=== PATIENT | male | born 1930 | race American Indian/Alaskan Native ===

== ENCOUNTER 2017-06-16 06:53 | Day surgery (SDC) | payer MEDICARE ==
[2017-06-14 13:55] VITALS: BMI 30.7
[2017-06-16 07:34] LABS: BASO # 0.03 K/mm3 (0.0-2.0); BASO % 0.7 % (0.0-3.0); EOS # 0.1 (0.0-0.7); GRAN # 2.75 (1.4-6.5); GRAN % 61.3 % (50.0-68.0); HEMOGLOBIN 10.4 g/dL (14.0-18.0); LYMPH # 1.2 (1.2-3.4); LYMPH % 27.7 % (22.0-35.0); MEAN CELL VOLUME 84.1 fl (80.0-105.0); MEAN CORPUSCULAR HEMOGLOBIN 26.3 pg (25.0-35.0); MEAN CORPUSCULAR HGB CONC 31.2 g/dl (31.0-37.0); MEAN PLATELET VOLUME 9.7 fl (7.0-11.0); MONO # 0.4 (0.1-0.6); MONO % 8.3 % (1.0-6.0); RBC 3.96 10^6/uL (3.5-6.1); RED CELL DISTRIBUTION WIDTH 14.2 % (11.5-14.5); WHITE BLOOD COUNT 4.5 10^3/ul (4.5-11.0)
[2017-06-16 07:56] LABS: INR 1.09 (0.93-1.08); PARTIAL THROMBOPLASTIN TIME 32.4 Seconds (25.1-36.5); PROTHROMBIN TIME 12.6 SECONDS (9.4-12.5)
[2017-06-16 08:41] LABS: BLOOD UREA NITROGEN 22 mg/dL (7-21); CALCIUM 9.5 mg/dL (8.4-10.5); GFR AFRICAN-AMERICAN > 60; GFR NON-AFRICAN AMERICAN > 60
[2017-06-16] MEDS ORDERED: Lidocaine 2% Inj (20ml) ONE (08:41)
[2017-06-16] MEDS ORDERED: Iohexol 350mgl/ml 50 ML ONE (08:42)
[2017-06-16] MEDS ORDERED: Phenylephrine 10 mg/ml Inj ONE (08:49)
[2017-06-16] MEDS ORDERED: Iohexol 350 MG/100 ML VIAL ONE (08:49)
[2017-06-16] MEDS ORDERED: Midazolam 2 MG/2 ML VIAL ONE ×2 (08:49→09:11)
[2017-06-16] MEDS ORDERED: Eptifibatide 20 mg/10mL Inj IVP ONE (09:20)
[2017-06-16] MEDS ORDERED: Eptifibatide 0.75 mg/ml 75 MG/100 ML BOTTLE IV ONE (09:30)
[2017-06-16] MEDS: Sodium Chloride 0.9% 1,000 ML IV SCH ×2 (10:30→12:25)
[2017-06-16 11:47] LABS: BLOOD UREA NITROGEN 19 mg/dL (7-21); CALCIUM 8.9 mg/dL (8.4-10.5); GFR AFRICAN-AMERICAN > 60; GFR NON-AFRICAN AMERICAN > 60
--- NOTE | 2017-06-16 12:47 | CARDCATH ---
PROCEDURE DATE: 06/16/2017 CARDIAC CATH AND PTCA HISTORY: The patient is an 87-year-old male, who presents with angina and dyspnea. A stress test was abnormal. The patient's past medical history includes a history of coronary artery bypass surgery. His noninvasive testing revealed a normal ejection fraction with new ischemic changes. Echocardiogram shows aortic sclerosis without stenosis. The ejection fraction is over 50%. Because of this, cardiac catheterization was recommended. PROCEDURE: Left heart catheterization with coronary arteriography, supraaortic valvular injection, PATEL angiogram and PTCA and stent of a protected left main artery as well as the proximal circumflex artery. There were no complications. I performed moderate sedation, which included the presence of an independent trained observer that assisted in monitoring the patient's level of consciousness and physiologic status. After administration of fentanyl and Versed, my intra service time was 45 minutes. The findings on catheterization revealed a 99% ostial left main stenoses. The proximal circumflex revealed 80% stenoses. The LAD was occluded at its ostium. The right coronary artery was selectively cannulized and found to have a subtotally occluded AV groove branch of the RCA. There was a large parallel vessel of the RCA that fed the mid and distal PDA. Supraaortic valvular injection revealed no aortic insufficiency. The PATEL to the LAD was selectively cannulized and found to provide good antegrade flow to the mid and distal LAD. The patient was given two doses of intravenous Integrilin bolus with a drip as well as IV Angiomax. On the fluoroscopic guide, the guiding catheter was placed in the ostium in the left main artery. An 0.014 ATW wire was used to cross the 2 critical lesions. A 2.5 balloon was used to dilate the ostial left main as well as the proximal circumflex artery. This was followed by balloon angioplasty with a 3 balloon. After balloon deflation and removal, a 2.75 x 15 mm drug-eluting stent was placed and deployed in the proximal circumflex artery at 14 atmospheres of pressure. This was followed by a 4 x 8 mm drug-eluting stent that was placed and deployed in the ostium of the left main artery, which was at 14 atmospheres of pressure. Repeat coronary arteriography after balloon deflation removal revealed an excellent result with no residual stenosis and HODAN III flow across the left main artery as well as the proximal circumflex artery. Angio-Seal was used to close the femoral artery site. The patient tolerated the procedure well. In summary, the procedure was successful for PTCA and stent of a protected 99% ostial left main stenoses as well as a 80% proximal circumflex artery stenoses. Drug-eluting stents were utilized. Coronary arteriography revealed an occluded proximal RCA with a parallel vessel in the RCA that fed the mid and distal PDA. There was a 99% ostial left main stenoses, 80% proximal circumflex stenosis as well as an occluded LAD. The PATEL to the LAD was patent and provided good antegrade flow. There was no aortic insufficiency. Given these findings, the patient will need to remain on aspirin indefinitely and Plavix for a year and undergo a strict cardiac risk reduction program. Jamil Nino MD
[2017-06-16] MEDS: Insulin Reg-MEDIUM-Coverage SC SCH ×2 (17:48→21:37)
--- NOTE | 2017-06-16 22:25 | CARD ---
APPROVED REPORT EKG Measurement Heart [id number] <Conclusion> Normal sinus rhythm Normal ECG
[2017-06-17 00:10] VITALS: RESP 20; TEMP 97.8
[2017-06-17 06:15] LABS: BASO # 0.03 K/mm3 (0.0-2.0); BASO % 0.6 % (0.0-3.0); EOS # 0.1 (0.0-0.7); EOS % 2.4 % (1.5-5.0); GRAN # 2.93 (1.4-6.5); GRAN % 62.9 % (50.0-68.0); HEMOGLOBIN 10.2 g/dL (14.0-18.0); LYMPH # 1.2 (1.2-3.4); LYMPH % 25.5 % (22.0-35.0); MEAN CELL VOLUME 83.9 fl (80.0-105.0); MEAN CORPUSCULAR HEMOGLOBIN 26.6 pg (25.0-35.0); MEAN CORPUSCULAR HGB CONC 31.7 g/dl (31.0-37.0); MEAN PLATELET VOLUME 9.9 fl (7.0-11.0); MONO # 0.4 (0.1-0.6); MONO % 8.6 % (1.0-6.0); RBC 3.84 10^6/uL (3.5-6.1); RED CELL DISTRIBUTION WIDTH 14.5 % (11.5-14.5); WHITE BLOOD COUNT 4.7 10^3/ul (4.5-11.0)
[2017-06-17 06:25] VITALS: BP 140/73; PULSE 68; O2SAT 97
[2017-06-17 06:38] LABS: ALB/GLOB RATIO 1.3 (1.1-1.8); ALBUMIN 3.8 g/dL (3.0-4.8); ALT/SGPT 30 U/L (7-56); AST/SGOT 27 U/L (17-59); BLOOD UREA NITROGEN 17 mg/dL (7-21); CALCIUM 8.9 mg/dL (8.4-10.5); GFR AFRICAN-AMERICAN > 60; GFR NON-AFRICAN AMERICAN > 60
[2017-06-17] MEDS: Insulin Reg-MEDIUM-Coverage SC SCH (08:27)
--- NOTE | 2017-06-17 08:38 | HP ---
HISTORY OF PRESENT ILLNESS: I was called by Dr. Jamil Nino to see Tristan. He is status post cardiac cath with stent placement. He is an 87-year-old male who is having shortness of breath when walking, came and suddenly had a stress test and echo done on 06/03/2017 and then he was planned for cardiac cath with a stent until this morning. PAST MEDICAL HISTORY: Diabetes, AL, CAD, high cholesterol, hypertension, arthritis, GERD, history of cancer in 1992, he had a CABG in 1996; dry eyes, profuse sweating, especially at night. He has got right knee swelling. FAMILY HISTORY: Family has a history of diabetes. Inguinal hernia, also neck pain. He has prostate cancer. He had CABG, prostate surgery 4 to 5 years ago, colonoscopy. SOCIAL HISTORY: He quit smoking. He quit alcohol. No substance abuse. REVIEW OF SYSTEMS: He has had hypertension, CAD and CABG, right knee pains. He wears glasses. He is alert and oriented x3. He is alert and cooperative. He has no acute vision changes or hearing changes. No sore throat. He has been having shortness of breath, occasional chest discomfort from time to time. Feels short of breath, but no cough. No abdominal pain. No nausea or vomiting. Occasional leg swelling, but none now. Skin for the most part is intact. PHYSICAL EXAMINATION: VITAL SIGNS: 97.4 temperature, 75 pulse, 20 respiratory rate, 99% O2 sat on oxygen, 147/78 blood pressure. HEENT: Head is atraumatic, normocephalic. Extraocular muscles are intact. Throat is moist. NECK: Supple. HEART: Regular rate. LUNGS: Decreased breath sounds, but clear to auscultation. ABDOMEN: Soft, obese, nontender. Positive bowel sounds. EXTREMITIES: Have trace edema if any. SKIN: For the most part is intact. LYMPHATICS: Thyroid midline. No palpable appreciable lymphadenopathy. LABORATORY DATA: He had blood tests. He has a 141 sodium, potassium of 4.1. BUN is 19, creatinine 0.8; it was as high as 22/0.9. GFR is greater than 60. Sugar is 133 and 169, I will put him on insulin coverage. Calcium is 8.9. INR is 1.09, hemoglobin 4.5, and platelets of 189. ASSESSMENT AND PLAN: We will watch him overnight to lay flat for 6 hours. We will check his labs tomorrow. He will be on aspirin, atorvastatin, Plavix, insulin coverage and IV fluids. This is Dr. Roberts doing a history and physical on Tristan who has coronary artery disease with stent placement, diabetes and hypertension. Mian Roberts DO MTDD
--- NOTE | 2017-06-17 10:41 | PN ---
DATE: 06/17/2017 CARDIOLOGY FOLLOWUP SUBJECTIVE: The patient is asymptomatic, ambulating in the room. PHYSICAL EXAMINATION: VITAL SIGNS: Stable. Blood pressure is 140/73 with the heart rates in the 60s. NECK: Negative JVD. LUNGS: Without rales. HEART: Reveals S1, S2. EXTREMITIES: Without edema. The right groin site is stable. LABORATORY DATA: Laboratories were reviewed and unchanged. Glucose is 159. IMPRESSION: 1. Stable post percutaneous transluminal coronary angioplasty and stent of a 99% left main stenoses. 2. Status post percutaneous transluminal coronary angioplasty and stent of the 80% circumflex artery. 3. Multivessel coronary artery disease. 4. History of coronary artery bypass surgery. 5. Diabetes mellitus. 6. Hypercholesterolemia. PLAN: Given these findings, the patient is doing well post procedure. The patient can be discharged today. Followup and instructions were given to the patient in detail. Jamil Nino MD
--- NOTE | 2017-06-17 11:34 | DS ---
HISTORY OF PRESENT ILLNESS: I saw him resting comfortably in bed this morning. He is in good spirits. He is feeling well. No chest pain. No shortness of breath. No abdominal pain. He is eating and he has walked a little bit. PHYSICAL EXAMINATION: VITAL SIGNS: He has a 97.8 temp, 68 pulse, 140/73 blood pressure, 20 respiratory rate, 97% O2 sat on room air. HEENT: His head is atraumatic, normocephalic. HEART: Regular rate. LUNGS: Clear to auscultation. ABDOMEN: Soft, nontender. Positive bowel sounds. Obese mildly. EXTREMITIES: No edema. LABORATORY DATA: He has 4.7 white count, 10.2 hemoglobin, 32.2 hematocrit with 166 platelets. He has a 141 sodium, potassium 3.7, BUN 17, creatinine 0.8, GFR is greater than 60, sugar is 149, calcium is 8.9, total bili is 0.4, AST is 27, ALT is 30, alk phos 48, total protein 6.6, albumin is 3.8. ASSESSMENT AND PLAN: I discussed with Dr. Nino. He will be discharged today. He can follow up with him on the outpatient. We will continue with his Ecotrin, Lipitor, Plavix as per Dr. Nino. Tristan Ovalles with coronary artery disease with a coronary stent placed. Mian Roberts DO
--- NOTE | 2017-06-17 11:49 | CARD ---
APPROVED REPORT EKG Measurement Heart [id number] <Conclusion> Sinus bradycardia Nonspecific T wave abnormality Abnormal ECG
== END 2017-06-17 12:31 | disposition home or self-care (01) ==
LOC: CATH 06:53 → 2RNO 10:15 → CATH 06-17 12:31
PROVIDERS: ATTEND Internal Medicine Cardiovascular Disease
DX: I25.10 Atherosclerotic heart disease of native coronary artery without angina pectoris (principal); K21.9 Gastro-esophageal reflux disease without esophagitis; E78.00 Pure hypercholesterolemia, unspecified; I10 Essential (primary) hypertension; E11.9 Type 2 diabetes mellitus without complications; Z95.1 Presence of aortocoronary bypass graft; Z87.891 Personal history of nicotine dependence
CPT/HCPCS: 36415; 80048; 82948; 85025; 85610; 85730; 86850; 86900; 93005; 93459; 93567; 99152; 99153; C1725 ×2; C1760; C1769 ×2; C1874 ×2; C1887; C2629; C9600; J0583; J1327 ×2; J1644; J2250; J3010; J7040 ×2; Q9967 ×3

== ENCOUNTER 2018-03-14 02:48 | Emergency (ER) | payer MEDICARE ==
[2018-03-14 02:48] VITALS: BMI 30.7
[2018-03-14] MEDS ORDERED: Oxycodone/Acetaminophen 5/325 mg Tab PO STA (03:18)
--- NOTE | 2018-03-14 03:18 | ED PDOC ---
Arrival/HPI - General Historian: Patient - History of Present Illness Narrative History of Present Illness (Text): Patient is a 87 yr old male with PMH HTN, CAD, CABG, DM, GERD who presents to [facility] ED with a painful rash extending from his back around to his abdomen. He recently saw his PMD for this and was given Valtrex and neurontin. He states that the pain has continued and the rash has progressed despite the medications. He endorses pain to touch and movement but otherwise denies RIOS, CP, SOB abdominal pain, f/c, n/v, stool changes and extremity pain/weakness. 03/14/18 04:32 Time/Duration: Prior to Arrival, < week (3-4 days) Symptom Onset: Sudden Symptom Course: Worsening Quality: Burning Severity Level: 6 <Ara Martínez - Last Filed: 03/14/18 04:34> <Navi Zimmerman - Last Filed: 03/14/18 05:00> - General Chief Complaint: Abnormal Skin Integrity Time Seen by Provider: 03/14/18 02:59 Past Medical History - Provider Review Nursing Documentation Reviewed: Yes - Tetanus Immunization Tetanus Immunization: Unknown - Cardiac Hx Hypertension: Yes Hx Pacemaker: No - Neurological Hx Paralysis: No - Endocrine/Metabolic Hx Diabetes Mellitus Type 2: Yes - Hematological/Oncological Hx Blood Transfusions: No Hx Blood Transfusion Reaction: No - Musculoskeletal/Rheumatological Hx Musculoskeletal Disorders: No (HAS NECK PAIN) - Psychiatric Hx Emotional Abuse: No Hx Physical Abuse: No Hx Substance Use: No - Surgical History Hx Cardiac Catheterization: Yes (x 1 stent) - Anesthesia Hx Anesthesia: Yes Hx Anesthesia Reactions: No Hx Malignant Hyperthermia: No - Suicidal Assessment Feels Threatened In Home Enviroment: No <Ara Martínez - Last Filed: 03/14/18 04:34> Family/Social History - Physician Review Nursing Documentation Reviewed: Yes Family/Social History: Unknown Family HX Smoking Status: Never Smoked Hx Alcohol Use: Yes (QUIT 1996) Hx Substance Use: No <Ara Martínez - Last Filed: 03/14/18 04:34> Allergies/Home Meds <Ara Martínez - Last Filed: 03/14/18 04:34> <Navi Zimmerman - Last Filed: 03/14/18 05:00> Allergies/Adverse Reactions: Allergies No Known Allergies Allergy (Verified 06/14/17 13:55) Home Medications: Home Meds Medication Instructions Recorded Confirmed Hydrochlorothiazide [HCTZ] 25 mg PO QAM 11/12/13 06/16/17 Losartan [Cozaar] 25 mg PO QAM 06/03/17 06/16/17 Megestrol Acetate [Megace] 40 mg PO QID 06/03/17 06/16/17 Metoprolol Tartrate [Lopressor] 50 mg PO BID 06/03/17 06/16/17 Polyethylene Glycol/Polyvinyl 15 ml OP PRN PRN 06/03/17 06/16/17 [Artificial Tears] Simvastatin [Zocor] 40 mg PO DAILY 06/03/17 06/16/17 Tamsulosin HCl [Flomax] 0.4 mg PO DAILY PRN 06/03/17 06/16/17 metFORMIN [glucOPHAGE] 500 mg PO BID 06/03/17 06/14/17 Cholecalciferol (Vitamin D3) 1,000 unit PO DAILY 06/14/17 [Vitamin D3] Plavix 75 mg PO DAILY 06/17/17 06/17/17 Review of Systems - Physician Review All systems were reviewed & negative as marked: Yes - Review of Systems Constitutional: Normal. absent: Fevers Respiratory: absent: SOB, Cough Cardiovascular: absent: Chest Pain Gastrointestinal: Abdominal Pain (skin over the T10 dermatome). absent: Constipation, Diarrhea, Nausea, Vomiting Musculoskeletal: Back Pain (skin over the T 10 dermatome). absent: Arthralgias Skin: Rash (raised painful tender vesicular rash spread over the T10 dermatome), Skin Lesions (vesicular lesions) Neurological: absent: Headache Endocrine: absent: Diaphoresis <Ara Martínez - Last Filed: 03/14/18 04:34> Physical Exam Vital Signs Reviewed: Yes Vital Signs Temp Pulse Resp BP Pulse Ox 03/14/18 02:48 98.7 F 70 18 157/72 H 97 Temperature: Afebrile Blood Pressure: Hypertensive Pulse: Regular Respiratory Rate: Normal Appearance: Positive for: Well-Appearing, Non-Toxic, Comfortable Pain Distress: None Mental Status: Positive for: Alert and Oriented X 3 - Systems Exam Head: Present: Atraumatic, Normocephalic Extroacular Muscles: Present: EOMI Mouth: Present: Moist Mucous Membranes Neck: Present: Normal Range of Motion Respiratory/Chest: Present: Clear to Auscultation, Good Air Exchange. No: Respiratory Distress, Accessory Muscle Use Cardiovascular: Present: Regular Rate and Rhythm, Normal S1, S2. No: Murmurs Abdomen: Present: Normal Bowel Sounds, Other (vesicular lesions over the skin of the T10 dermatome). No: Tenderness, Distention, Peritoneal Signs Back: Present: Other (vesicular lesions tender to touch over T10 dermatome) Upper Extremity: Present: Normal Inspection, NORMAL PULSES. No: Cyanosis, Edema Lower Extremity: Present: Normal Inspection, NORMAL PULSES. No: Edema, CALF TENDERNESS Neurological: Present: GCS=15, CN II-XII Intact, Speech Normal Skin: Present: Warm, Dry, Rashes (vesiclar raised lesions over the T10 dermatome), Erythematous Psychiatric: Present: Alert, Oriented x 3, Normal Insight, Normal Concentration <Ara Martínez - Last Filed: 03/14/18 04:34> Vital Signs Temp Pulse Resp BP Pulse Ox 03/14/18 02:48 98.7 F 70 18 157/72 H 97 <Navi Zimmerman - Last Filed: 03/14/18 05:00> Medical Decision Making ED Course and Treatment: Impression: 87 yr old male presenting with Shingles Plan: Percocet Capsaicin cream continue home medications discharge with instructions to f/u with primary 03/14/18 03:21 <Ara Martínez - Last Filed: 03/14/18 04:34> ED Course and Treatment: Impression: Pt seen and evaluated with resident. Aware and agree with HPI, clinical findings, plan, and management. Pt, whose past medical history includes hypertension, CAD, CABG, diabetes, and GERD, presented for a painful rash to his right lower back extending to his right abdomen. Plan: -- Zostrix -- Percocet -- Reassess and disposition - Medication Orders Current Medication Orders: Capsaicin (Zostrix-Hp) 60 gm TOP ONCE ONE Stop: 03/14/18 03:22 Discontinued Medications Oxycodone/Acetaminophen (Percocet 5/325 Mg Tab) 1 tab PO STAT STA Stop: 03/14/18 03:19 <Navi Zimmerman - Last Filed: 03/14/18 05:00> - PA / FEATHER CURLING MACHINE OPERATOR / Resident Statement /DO has reviewed & agrees with the documentation as recorded. MD/ has examined the patient and agrees with the treatment plan. <ErasmoNavi - Last Filed: 03/14/18 05:00> Disposition/Present on Arrival - Present on Arrival Any Indicators Present on Arrival: No History of DVT/PE: No History of Uncontrolled Diabetes: No Urinary Catheter: No History of Decub. Ulcer: No History Surgical Site Infection Following: None - Disposition Have Diagnosis and Disposition been Completed?: Yes Disposition Time: 03:28 Patient Plan: Discharge <Flory Martínezah - Last Filed: 03/14/18 04:34> <ErasmoNavi - Last Filed: 03/14/18 05:00> - Disposition Diagnosis: Shingles rash Disposition: HOME/ ROUTINE Condition: GOOD Discharge Instructions (ExitCare): Shingles (DC), Shingles (ED) Additional Instructions: Please follow up with your primary care doctor within 3-5 days of Discharge you have been given 2 medications upon discharge Capsaicin cream to be applied to the painful area three times daily for pain Percocet take 1 tab every 6 hours by mouth for pain If your symptoms worsen/ persist or if new concerning symptoms develop please return to the nearest ED for evaluation Prescriptions: oxyCODONE/Acetaminophen [Percocet 5/325 mg Tab] 1 ea PO Q6 PRN #12 tab PRN Reason: Pain, Moderate (4-7) Capsaicin [Zostrix Hp] 56.6 gm TP TID PRN #1 tube PRN Reason: Pain, Moderate (4-7) Referrals: Page Queen MD [Primary Care Provider] - Follow up with primary Forms: [employer] - [employer] (Mongolian)
[2018-03-14] MEDS ORDERED: Capsaicin 0.075% Cream(60 gm) TOP ONE (03:21)
[2018-03-14 04:06] VITALS: BP 140/65; PULSE 62; RESP 20; TEMP 97.6; O2SAT 98
== END 2018-03-14 04:06 | disposition home or self-care (01) ==
LOC: ED 02:48
DX: B02.9 Zoster without complications (principal); E11.9 Type 2 diabetes mellitus without complications; I10 Essential (primary) hypertension; I25.10 Atherosclerotic heart disease of native coronary artery without angina pectoris

== ENCOUNTER 2018-03-17 08:38 | Outpatient (CLI) | payer MEDICARE | END 2018-03-17 08:39 | disposition home or self-care (01) | LOC: RAD 08:38 ==

== ENCOUNTER 2018-03-19 06:51 | Emergency (ER) | payer MEDICARE ==
[2018-03-19 06:51] VITALS: BMI 30.7
[2018-03-19 07:02] VITALS: RESP 18
--- NOTE | 2018-03-19 07:35 | ED PDOC ---
Arrival/HPI - General Chief Complaint: Abdominal Pain Time Seen by Provider: 03/19/18 07:16 Historian: Patient - History of Present Illness Narrative History of Present Illness (Text): 03/19/18 07:30 A 87 year old male, whose past medical history includes diabetes, CABBG, CAD, stent, hyperlipidemia, and hypertension, presents to the emergency department complaining of right lower quadrant pain radiating to the right flank for the past few days. Patient states pain has occurred since the shingles and has progressed over that past days. Patient notes lying on his right side exacerbates pain and rates the pain 8/10. Patient states he is experiencing an increasing urinary frequency. Patient reports he was in the ER a few days ago for shingles also on the right side that is almost resolved and was discharged with percocets and capsaicin cream which patient states has helped. Patient reports he saw his primary care doctor yesterday and states his doctor believes he may have kidney stones. Patient denies any fever, chills, shortness of breath, urinary symptoms, back pain, headache, dizziness, or any other complaints. PMD: Dr. Queen Time/Duration: < week (past few days) Symptom Onset: Gradual Symptom Course: Unchanged Activities at Onset: Light Context: Home Past Medical History - Provider Review Nursing Documentation Reviewed: Yes - Infectious Disease Hx of Infectious Diseases: None - Tetanus Immunization Tetanus Immunization: Unknown - Cardiac Hx Hypertension: Yes Hx Pacemaker: No - Neurological Hx Paralysis: No - Endocrine/Metabolic Hx Diabetes Mellitus Type 2: Yes - Hematological/Oncological Hx Blood Transfusions: No Hx Blood Transfusion Reaction: No - Musculoskeletal/Rheumatological Hx Musculoskeletal Disorders: No (HAS NECK PAIN) - Psychiatric Hx Emotional Abuse: No Hx Physical Abuse: No Hx Substance Use: No - Surgical History Hx Cardiac Catheterization: Yes (x 1 stent) - Anesthesia Hx Anesthesia: Yes - Suicidal Assessment Feels Threatened In Home Enviroment: No Family/Social History - Physician Review Nursing Documentation Reviewed: Yes Family/Social History: No Known Family HX Smoking Status: Never Smoked Hx Alcohol Use: Yes (QUIT 1996) Hx Substance Use: No Allergies/Home Meds Allergies/Adverse Reactions: Allergies No Known Allergies Allergy (Verified 06/14/17 13:55) Home Medications: Home Meds Medication Instructions Recorded Confirmed Hydrochlorothiazide [HCTZ] 25 mg PO QAM 11/12/13 03/19/18 Losartan [Cozaar] 25 mg PO QAM 06/03/17 03/19/18 Metoprolol Tartrate [Lopressor] 50 mg PO BID 06/03/17 03/19/18 Polyethylene Glycol/Polyvinyl 15 ml OP PRN PRN 06/03/17 03/19/18 [Artificial Tears] Tamsulosin HCl [Flomax] 0.4 mg PO DAILY 06/03/17 03/19/18 metFORMIN [glucOPHAGE] 2 tab PO BID 06/03/17 03/19/18 Cholecalciferol (Vitamin D3) 1,000 unit PO DAILY 06/14/17 03/19/18 [Vitamin D3] Atorvastatin Calcium [Lipitor] 80 mg PO DAILY 03/19/18 03/19/18 Review of Systems - Physician Review All systems were reviewed & negative as marked: Yes - Review of Systems Constitutional: absent: Fevers, Other (chills) Respiratory: absent: SOB Genitourinary Male: Frequency (increased urinary frequency), Other (right groin pain). absent: Dysuria Neurological: absent: Headache, Dizziness Physical Exam - Physical Exam Narrative Physical Exam (Text): 03/19/18 07:30 Gen: VS reviewed, alert, well developed, well nourished, nontoxic, mild distress. ENT: normal pharynx. Eye: EOMI, PERRL. Neck: no JVD, supple, no adenopathy. CV: regular rate, regular rhythm, no rubs, no murmur, no gallops, S1, S2, pulses equal and strong. Pulm: no distress, clear to auscultation, no wheeze, no rhonchi, breath sounds equal, no rales. Abd: mild right lower quadrant tenderness, no guarding, no rebound, no rigidity, normal bowel sounds. Ext: no edema. Skin: good color, no rash, no cyanosis. well healed scant rash on his periumbilical area extending across the right side dermatome to his back. Psych: responds appropriately to questions, normal affect. Neuro: oriented x 3, CN2-12 intact grossly, motor intact, sensation intact. Vital Signs Reviewed: Yes Vital Signs Temp Pulse Resp BP Pulse Ox 03/19/18 07:02 97.2 F L 78 18 133/50 L 96 Temperature: Hypothermic Blood Pressure: Hypotensive Pulse: Regular Respiratory Rate: Normal Mental Status: Positive for: Alert and Oriented X 3 Medical Decision Making ED Course and Treatment: 03/19/18 07:30 Impression: 87 year old male presenting to the emergency room complaining of right groin pain. Plan: -- CMP -- CBC -- Xray of abdomen -- Urinalysis -- Reassess and disposition Prior Visits: Notes and results from previous visits were reviewed. Progress Notes: 03/19/18 10:00 patient seen for right sided abominal pain, decreased bowel movements, benign abdominal exam, onset after taking percocet for recently diagnosed shingles. Ct of the a/p reviewed by myself and was unremarkable. xr of the a/p was done to eval for suspected clinical constipation. patient was in no significant pain during ED course. patient was educated on clinical diagnose and instructed to follow up with pcp. - RAD Interpretation Narrative RAD Interpretations (Text): 03/19/18 09:57 xr my read: no bowel obstruction, oral contrast visualized in the intestines which has the appearance of constipated stool. no impaction Senior Industrial Engineer: ED Physician - Scribe Statement The provider has reviewed the documentation as recorded by the Scribe Lolis Diehl All medical record entries made by the Scribe were at my direction and personally dictated by me. I have reviewed the chart and agree that the record accurately reflects my personal performance of the history, physical exam, medical decision making, and the department course for this patient. I have also personally directed, reviewed, and agree with the discharge instructions and disposition. Disposition/Present on Arrival - Present on Arrival Any Indicators Present on Arrival: No History of DVT/PE: No History of Uncontrolled Diabetes: No Urinary Catheter: No History of Decub. Ulcer: No History Surgical Site Infection Following: None - Disposition Have Diagnosis and Disposition been Completed?: Yes Diagnosis: Abdominal pain, Constipation, Postherpetic neuralgia Disposition: HOME/ ROUTINE Disposition Time: 09:58 Patient Plan: Discharge Patient Problems: Current Active Problems Problem Status Onset Abdominal pain Acute Constipation Acute Postherpetic neuralgia Acute Condition: STABLE Discharge Instructions (ExitCare): Shingles, Constipation in Adults Additional Instructions: return for any new or worsening symptoms. follow up with your primary care doctor. Prescriptions: Sennosides/Docusate Sodium [Colace 2-in-1 Tablet] 2 each PO BID 7 Days #14 tablet Forms: [employer] (Iranian)
[2018-03-19 08:57] LABS: BASO # 0.03 K/mm3 (0.0-2.0); BASO % 0.6 % (0.0-3.0); EOS # 0.1 (0.0-0.7); EOS % 2.1 % (1.5-5.0); GRAN # 2.97 (1.4-6.5); GRAN % 61.2 % (50.0-68.0); HEMOGLOBIN 11.9 g/dL (14.0-18.0); LYMPH # 1.3 (1.2-3.4); LYMPH % 27.2 % (22.0-35.0); MEAN CELL VOLUME 86.4 fl (80.0-105.0); MEAN CORPUSCULAR HEMOGLOBIN 27.9 pg (25.0-35.0); MEAN CORPUSCULAR HGB CONC 32.3 g/dl (31.0-37.0); MEAN PLATELET VOLUME 10.2 fl (7.0-11.0); MONO # 0.4 (0.1-0.6); MONO % 8.9 % (1.0-6.0); RBC 4.26 10^6/uL (3.5-6.1); RED CELL DISTRIBUTION WIDTH 14.5 % (11.5-14.5); WHITE BLOOD COUNT 4.9 10^3/uL (4.5-11.0)
[2018-03-19 09:11] VITALS: BP 159/76; PULSE 66; O2SAT 99
[2018-03-19 09:15] LABS: PH,URINE 6.5 (4.7-8.0); URINE BILIRUBIN NEGATIVE (NEGATIVE); URINE BLOOD NEGATIVE (NEGATIVE); URINE GLUCOSE (UA) NEGATIVE (NEGATIVE); URINE LEUKOCYTE ESTERASE NEGATIVE Leu/uL (NEGATIVE); URINE PROTEIN 30 mg/dL (<30 mg/dL); URINE UROBILINOGEN 0.2 E.U./dL (<1 E.U./dL)
[2018-03-19 09:17] LABS: URINE APPEARANCE CLEAR (CLEAR); URINE COLOR YELLOW (YELLOW)
[2018-03-19 09:25] LABS: URINE EPITHELIAL CELLS 0 - 2 /hpf (0-5); URINE RBC 0 - 2 /hpf (0-2); URINE WBC 0 - 2 /hpf (0-6)
[2018-03-19 09:49] LABS: ALB/GLOB RATIO 1.3 (1.1-1.8); ALBUMIN 4.5 g/dL (3.0-4.8); ALT/SGPT 22 U/L (7-56); AST/SGOT 31 U/L (17-59); BLOOD UREA NITROGEN 14 mg/dL (7-21); GFR NON-AFRICAN AMERICAN > 60
[2018-03-19 10:26] VITALS: TEMP 98.2
--- NOTE | 2018-03-19 16:41 | RAD ---
Date of service: 03/19/2018 HISTORY: pain, constipation COMPARISON: None available. FINDINGS: BOWEL: Normal. No obstruction. No free air. Oral contrast seen within colon from recent CT examination. No hepatic or splenic enlargement. BONES: Normal. OTHER FINDINGS: None. IMPRESSION: No evidence of bowel obstruction.
== END 2018-03-19 10:24 | disposition home or self-care (01) ==
LOC: ED 06:51
DX: B02.29 Other postherpetic nervous system involvement (principal); R10.9 Unspecified abdominal pain; K59.00 Constipation, unspecified; I25.10 Atherosclerotic heart disease of native coronary artery without angina pectoris; I10 Essential (primary) hypertension; E78.5 Hyperlipidemia, unspecified; E11.9 Type 2 diabetes mellitus without complications; Z95.1 Presence of aortocoronary bypass graft; Z95.5 Presence of coronary angioplasty implant and graft